=== PATIENT | female | born 1945 | race Caucasian/White ===

== ENCOUNTER → 2016-08-22 | Outpatient (CLI) | payer MEDICARE ==
[~2016-08-22] MED LIST: BIOT1TAB2 PO; CALC500C70 PO; HYDR-5688 PO; IBUP-1428 PO; LABE1TAB28 PO; LEVO25TA5 PO; MULT-506 PO; OXYC-57 PO; TRAZ50TA35 PO; VENL75TA4 PO; ZCR40 PO
--- NOTE | 2016-08-22 16:40 | DIAGNOSTIC IMAGING REPORT ---
LUMBAR SPINE MRI HISTORY: Pain. Radiculopathy. LUMBAR RADICULOPATHY TECHNIQUE: Multiplanar multisequence MRI of the lumbar spine was performed without the use of contrast. COMPARISON: None. FINDINGS: For the purpose of the report the L5-S1 disc space will be located on axial image 23 of 25. Considerable degenerative disc changes throughout. Degenerative change of vertebral endplates throughout. Several synovial cysts posterior to the S2-S3 segment of the sacrum. Posterior disc herniation seen sagittally at L4-L5. L1-L2: Minimal broad-based disc bulge. Left lateral disc herniation compromising the left neural foramina. This may be a loose fragment measuring 8 x 7 mm at maximum. L2-L3: Mild broad-based disc bulge. Mild narrowing of the right and to lesser extent left neuroforamina L3-L4: Moderate degenerative change posterior elements L4-L5: Left central disc herniation creating a focal deformity anterior aspect thecal sac. Minimal narrowing of the neuroforamina bilaterally posterior extension is 9 x 8 mm. L5-S1: Right lateral bulging disc. Moderate narrowing right neural foramina. IMPRESSION: 1. Severe degenerative intervertebral disc change throughout the entire lumbar region. 2. Left central posterior disc herniation L4-L5 creating considerable focal deformity of the thecal sac. 3. Extruded disc fragment occupying the left lateral recess at L1-L2. This compromises the neural foramina by 50-70% 4. Broad-based disc bulge L2-L3 with moderate narrowing of the neuroforamina bilaterally Electronically signed by: Nicolás Sanon M.D. 08/22/2016 4:38 PM Dictated Date/Time: 08/22/2016 4:34 PM
== END | disposition home or self-care (01) ==
LOC: C.MRIBC 15:32
PROVIDERS: ATTEND Anesthesiology
DX: M51.16 Intervertebral disc disorders with radiculopathy, lumbar region (principal)

== ENCOUNTER → 2016-11-21 | Outpatient (CLI) | payer MEDICARE ==
[2016-11-21 12:46] LABS: ALB/GLOB RATIO 1.4 (0.9-2); ALT/SGPT 28 U/L (12-78); AST/SGOT 14 U/L (15-37); BLOOD UREA NITROGEN 17 mg/dl (7-18); BUN/CREATININE RATIO 19.6 (10-20); CARBON DIOXIDE 26 mmol/L (21-32); CHLORIDE 108 mmol/L (98-107); CHOLESTEROL 157 mg/dl (0-200); CHOLESTEROL/HDL RATIO 3.1; CREATININE 0.87 mg/dl (0.60-1.20); GLUCOSE 105 mg/dl (70-99); HDL CHOLESTEROL 50 mg/dl; LDL CHOLESTEROL CALCULATED 82 mg/dl; POTASSIUM 4.1 mmol/L (3.5-5.1); SODIUM 142 mmol/L (136-145); TRIGLYCERIDES 125 mg/dl (0-150); VERY LOW DENSITY LIPOPROT CALC 25 mg/dl
[2016-11-21 12:50] LABS: ESTIMATED AVERAGE GLUCOSE 103 mg/dl; HA1C FLAG Normal (Normal)
[2016-11-21 12:55] LABS: ALKALINE PHOSPHATASE 79 U/L (45-117)
== END | disposition home or self-care (01) ==
LOC: C.LABBFT 10:57
PROVIDERS: ATTEND Internal Medicine
DX: R73.01 Impaired fasting glucose (principal)

== ENCOUNTER → 2017-05-19 | Outpatient (CLI) | payer MEDICARE ==
--- NOTE | 2017-05-19 15:11 | MAMMOGRAPHY REPORT ---
BILATERAL DIGITAL SCREENING MAMMOGRAM WITH CAD: 05/19/2017 CLINICAL HISTORY: Routine screening. Patient has no complaints. TECHNIQUE: Bilateral CC and MLO views were obtained. Current study was also evaluated with a Comput er Aided Detection (CAD) system. COMPARISON: Comparison is made to exam dated: 10/30/2015 mammogram - [facility]. BREAST COMPOSITION: There are scattered areas of fibroglandular density in both breasts. FINDINGS: The parenchymal pattern is unchanged. No developing mass, architectural distortion or clus ter of suspicious microcalcifications is seen in either breast. IMPRESSION: ACR BI-RADS CATEGORY 2: BENIGN There is no mammographic evidence of malignancy. A 1 year screening mammogram is recommended. The pa tient will receive written notification of the results. Approximately 10% of breast cancers are not detected with mammography. A negative mammographic report should not delay biopsy if a clinically suggestive mass is present. Chiqui Rehman M.D. ay/:05/19/2017 15:00:18 Lead Consultant: Marlene Barbosa RT(R)(M), [facility] letter sent: Normal 1/2 BI-RADS Code: ACR BI-RADS Category 2: Benign
== END | disposition home or self-care (01) ==
LOC: C.MAMM 12:30
PROVIDERS: ATTEND Internal Medicine
DX: Z12.31 Encounter for screening mammogram for malignant neoplasm of breast (principal)

== ENCOUNTER 2019-04-22 09:57 | Inpatient (IN) ==
--- NOTE | 2019-03-22 12:52 | PAT Medication Instructions ---
Medication Instructions Date of Service March 22, 2019 Home Medications Medication Instructions Recorded trazodone 50 mg tablet 75 mg PO HS #135 tab 12/27/18 labetalol 200 mg tablet 200 mg PO BID #180 tab 03/16/19 simvastatin 40 mg PO HS venlafaxine 75 mg PO QAM ibuprofen 800 mg tablet 800 mg PO TID PRN trazodone 50 mg tablet 75 mg PO HS calcium carbonate [Tums] 200 mg PO DAILY PRN labetalol 200 mg tablet 200 mg PO BID levothyroxine 25 mcg PO QPM ASK your surgeon for instructions ibuprofen 800 mg tablet 800 mg PO TID PRN DO NOT take the morning of surgery calcium carbonate [Tums] 200 mg PO DAILY PRN Take morning of surgery With a small sip of water, OTHERWISE NOTHING TO EAT OR DRINK AFTER MIDNIGHT: venlafaxine 75 mg PO QAM labetalol 200 mg tablet 200 mg PO BID Take evening before surgery simvastatin 40 mg PO HS trazodone 50 mg tablet 75 mg PO HS calcium carbonate [Tums] 200 mg PO DAILY PRN (if needed) labetalol 200 mg tablet 200 mg PO BID levothyroxine 25 mcg PO QPM Other Notes If you have any questions please call us at [phone] or [phone] or [phone] or [phone]
--- NOTE | 2019-03-23 09:36 | Anesthesiology Consultation ---
Date of Service March 23, 2019 Assessment & Plan (1) Encounter for pre-operative examination: Chart Review Chart Review: Pending: Refer to Additional Notes / Consult section (pending preop testing (labs, EKG, CXR)) and Patient seen in Pre Admission Testing Teaching & Discussion Pre-Anesthesia Teaching/Discussion Notes: Instructed NPO after midnight before surgery,except medications with 15 cc of water. Medication instructions pr ovided according to the PAT guidelines. History Surgery Operation Date: 04/22/19 12:50 Proposed Procedures p Left Total Knee Replacement - Janes Ash MD Height/Weight Height: 4 ft 11 in Weight: 66.3 kg Allergies Allergy/AdvReac Type Severity Reaction Status Date / Time lisinopril Allergy Unknown rash, Verified 03/22/19 12:51 pruritus Penicillins Allergy Unknown swelling Verified 03/22/19 12:51 gabapentin AdvReac Severe shaking Verified 03/16/19 08:52 Medications Home Medications Medication Instructions Recorded Confirmed Last Taken simvastatin 40 mg PO HS 04/07/18 03/16/19 04/27/18 venlafaxine 75 mg PO QAM 04/07/18 03/16/19 04/28/18 05:30 ibuprofen 800 mg tablet 800 mg PO TID PRN #30 tab 12/07/18 03/16/19 Unknown trazodone 50 mg tablet 75 mg PO HS #135 tab 12/27/18 03/16/19 Unknown calcium carbonate [Tums] 200 mg PO DAILY PRN 03/16/19 03/16/19 Unknown labetalol 200 mg tablet 200 mg PO BID #180 tab 03/16/19 Unknown levothyroxine 25 mcg PO QPM 03/16/19 03/16/19 Unknown Past Medical History Medical History Lumbar radiculopathy Insomnia Impaired fasting glucose per records, patient denies Hypothyroidism Hyperlipidemia Arthritis Anxiety Acid reflux occasional (dietary related) Disc degeneration Hot flashes Hypertension Hypothyroidism Kidney stones hx Osteoarthritis Exercise / Class Metabolic Activity II 4-5 Yardwork/Stairs/Walk up hill Past Family History Family History Brother Family history of esophageal cancer Past Surgical History Surgical History History of ureter stent + renal angioplasty Hx of arthroscopic knee surgery RIGHT X2 Hx of arthroscopy of shoulder RIGHT Hx of cholecystectomy Hx of colonoscopy Hx of cone biopsy of cervix Hx of hysterectomy PARTIAL Hx of partial nephrectomy LEFT (2/2 KIDNEY DYSFUNCTION) Hx of total knee arthroplasty RIGHT Past Anesthesia History No Family Hx of Anesthesia Complications and Other "Slow to wake" with multiple surgeries. No known hx of reintubation. History of PONV No Hx of PONV and No Hx of Motion Sickness Social History Smoking Status: Former smoker tobacco type: cigarettes Do You Dip or Chew Tobacco: No Smoking End Date: QUIT 1993 Hx Alcohol Use: Yes Alcohol type: wine alcohol intake frequency: a few times a week Hx Substance Use: No substance use type: does not use Review of Systems Diet controlled reflux. Patient denies chest pain, shortness of breath, dyspnea on exertion, cough, wheezing, palpitations. Physical Exam Vital Signs VITALS BP 124/76 P 51 (on beta amber) TEMP 98.0 SP02 94%RA RESP 16 PHYSICAL Full neck and c-spine range of motion. Full TMJ range of motion. TMD 3 finger breaths Mallampati Score 3 Dentition: missing molar Lungs: clear throughout to auscultation Cardiac: regular rate and rhythm, no murmurs noted Spine: normal Carotid arteries: negative bruit Extremities: no edema
--- NOTE | 2019-03-23 10:11 | XRay Report ---
XR chest Pre-admission PA/Lat HISTORY: Preop. COMPARISON: None. FINDINGS: The lungs are clear. Cardiac silhouette is normal in size. No pleural effusions. No pneumot horax. Prior cholecystectomy. IMPRESSION: No acute process. Electronically signed by: Hermes Garcia M.D. 03/23/2019 10:09 AM
[2019-03-23 11:01] LABS: BUN Creatinine Ratio 31.3 (10-20); Blood Urea Nitrogen 27 mg/dl (7-18); C Reactive Protein < 0.29 mg/dl (0-0.29); Calcium 9.5 mg/dl (8.5-10.1); Carbon Dioxide 29 mmol/L (21-32); Chloride 107 mmol/L (98-107); Creatinine Clr Calc Pharmacy 50.3 ml/min; Est GFR (African American) 79.9; Est GFR (Non-African American) 68.9; Glucose 106 mg/dl (70-99); Potassium 4.4 mmol/L (3.5-5.1); Sodium 141 mmol/L (136-145)
[2019-03-23 11:06] LABS: Partial Thromboplastin Ratio 0.9; Partial Thromboplastin Time 23.3 Seconds (21.0-31.0); Prothrombin Time 10.3 Seconds (9.0-12.0)
[2019-03-23 11:11] LABS: Basophils # (auto) 0.04 K/uL (0-0.2); Basophils % (auto) 0.7 %; Eosinophils # (auto) 0.06 K/uL (0-0.5); Hematocrit (blood only) 38.9 % (37-47); Hemoglobin 13.1 g/dL (12.0-16.0); Immature Granulocytes # (auto) 0.01 K/uL (0.00-0.02); Immature Granulocytes % (auto) 0.2 %; Lymphocytes # (auto) 1.82 K/uL (1.2-3.4); Lymphocytes % (auto) 30.3 %; Mean Corpuscular Hgb Conc 33.7 g/dL (32-36); Mean Corpuscular Volume 89.2 fL (80-100); Mean Platelet Volume 10.6 fL (7.4-10.4); Monocytes # (auto) 0.63 K/uL (0.11-0.59); Monocytes % (auto) 10.5 %; Neutrophils # (auto) 3.45 K/uL (1.4-6.5); Neutrophils % (auto) 57.3 %; Platelet Count 183 K/uL (130-400); RDW Coefficient of Variation 13.4 % (11.5-14.5); RDW Standard Deviation 43.7 fL (36.4-46.3); Red Blood Count 4.36 M/uL (4.2-5.4); White Blood Count 6.01 K/uL (4.8-10.8)
--- NOTE | 2019-04-16 10:11 | History and Physical Report ---
DATE OF ADMISSION: 04/22/2019 CHIEF COMPLAINT: Left knee pain. HISTORY OF PRESENT ILLNESS: The patient is a 73-year-old female referred by my partner Dr. Braden for surgical treatment of her left knee. She had on and off knee pain for quite some time. She did have her right knee replaced by Dr. Hurst in [place] about 9 years ago. She has done pretty well with this. Over the past several years, she has developed increased pain and discomfort in her left knee. It is mostly on the medial side, but some global pain. She has had injections, which gave her a couple weeks of relief and that is about it. It has become less successful over time. She has become more debilitated by her pain. She has a limited walking tolerance. She has difficulty going up and down stairs. She has nighttime pain. She is not interested in further conservative care and wants to have her knee fixed. PAST MEDICAL HISTORY: 1. Hypertension. 2. Angioplasty 20 years ago. 3. Hypothyroidism. 4. Low back pain. 5. Gastroesophageal reflux disease. 6. Obesity with a BMI of 30+. 7. History of kidney failure in the past with fairly normal creatinine currently. PAST SURGICAL HISTORY: Includes: 1. Cholecystectomy. 2. Stent in her kidney. 3. Partial hysterectomy. 4. Cone biopsy. 5. Right knee replacement done in 2009 in [place]. 6. Knee arthroscopy x2. 7. Rotator cuff repair. ALLERGIES: LISINOPRIL, GABAPENTIN, PENICILLIN WHICH CAUSED SOME SWELLING. No breathing problems. CURRENT MEDICINES: Include: 1. Calcium with vitamin D. 2. Ibuprofen 800 mg 3 times a day. 3. Labetalol 200 mg twice a day. 4. Levothyroxine 25 mcg a day. 5. Multivitamin once a day. 6. Simvastatin 40 mg at bedtime. 7. Venlafaxine 75 mg a day. SOCIAL HISTORY: A 73-year-old female. She moved to this area from [place] about 3 years ago. She lives in [place]. Does not smoke. FAMILY HISTORY: Noncontributory. REVIEW OF HISTORY: Negative for diabetes, neurologic problem, vascular problems or bleeding disorders. Denies any chest pain or shortness of breath. No history of DVT or PE. No known bleeding problems. PHYSICAL EXAMINATION: GENERAL: Shows a healthy, pleasant middle-aged female. Looks to be in pretty good health. HEENT: Benign. NECK: Supple, no lymphadenopathy. LUNGS: Clear to auscultation. HEART: Has a regular rate and rhythm. ABDOMEN: Soft, nontender, nondistended. EXTREMITIES: Grossly neurovascularly intact except as follows: Examination of the left lower extremity reveals the patient walks with a slight bit of limp. She has got a slight varus alignment to her knee. Small knee effusion. She is tender over the medial joint line. Range of motion is full, extension to 125 degrees of flexion. There is no instability. No pain with hip motion. X-RAYS: X-ray of the left knee is reviewed. It shows advanced medial compartment arthritis. She has got complete loss of her medial joint space. She has got osteophytes off the medial femoral condyle and medial tibial plateau. The rest of the knee looks pretty good. Right knee replacement looks to be in good position. ASSESSMENT: A 73-year-old white female 9 years out from right knee replacement with advanced left knee medial compartment degenerative joint disease. She has failed conservative treatment. It is affecting her quality of life and she would like to have her left knee fixed. PLAN: We will take her to the operating room and do a left total knee replacement. The risks and benefits of this procedure were explained to the patient including but not limited to DVT, PE, , infection, neurological injury, vascular injury, bleeding problem, pain, limited range of motion, stiffness, failure to relieve her symptoms, incomplete relief of symptoms, need for further surgery in the future, fracture, leg length inequality, nerve palsy, etc. The patient understands and desires to proceed. Informed consent was obtained. We did talk to her about taking her labetalol the morning of surgery. She has stopped her ibuprofen 10 days preop. She is hoping to be discharged to home with [facility].
[~2019-04-22 09:57] MED LIST changes: +ACETAMINOPHEN 500 MG TAB PO SCH; -BIOT1TAB2 PO; +BUPIVACAINE 0.5 % 5 MG/1 ML PF 10ML VIAL ONE; +BUPIVACAINE LIPOSOME/PF 266 MG, BUPIVACAINE/EPINEPHRINE 50 ML, SODIUM CHLORIDE 0.9% 30 ... INFIL SCH; -CALC500C70 PO; +CEFAZOLIN 2000MG 2,000 MG/15 ML SYR IV SCH; +FAMOTIDINE 20 MG TAB PO SCH; +GABAPENTIN 300 MG CAP PO SCH; -HYDR-5688 PO; -IBUP-1428 PO; -LABE1TAB28 PO; -LEVO25TA5 PO; +LR 500ML BOLUS IV SCH; +LR 60ML/HR IV SCH; +METOCLOPRAMIDE HCL 10 MG TABLET PO SCH; -MULT-506 PO; -OXYC-57 PO; +ROPIVACAINE 0.5% 5 MG/ML 30 ML VIAL ONE; -TRAZ50TA35 PO; -VENL75TA4 PO; -ZCR40 PO
--- NOTE | 2019-04-22 10:48 | History & Physical Bridge Note ---
Date of Service April 22, 2019 History & Physical Bridge Note I have examined the patient, reviewed the History & Physical and in the interval since the performance of the History & Physical I have noted the following changes of clinical significance: no changes noted
[2019-04-22] MEDS ORDERED: TRANEXAMIC ACID 1,000 MG **IV Intra-op IV SCH (11:30)
[2019-04-22] MEDS ORDERED: ATROPINE SULFATE 0.1 MG/ML 10ML SYR IV PRN (12:03)
[2019-04-22] MEDS ORDERED: ePHEDrine sulfate 50 MG/ML AMP IV PRN (12:03)
[2019-04-22] MEDS ORDERED: MIDAZOLAM HCL 1 MG/ML 2ML VIAL ONE ×2 (12:30→13:20)
[2019-04-22] MEDS ORDERED: fentaNYL citrate 100 MCG/2 ML VIAL ONE (12:30)
[2019-04-22] MEDS ORDERED: BACITRACIN INJ 50,000 UNIT VIAL ONE (12:44)
[2019-04-22] MEDS ORDERED: SODIUM CHLORIDE 0.9% PF 50 ML VIAL ONE (12:44)
[2019-04-22] MEDS ORDERED: BUPIVACAINE 0.25% 30 ML VIAL ONE (12:44)
[2019-04-22] MEDS ORDERED: EPINEPHrine INJ 1 MG/ML AMP ONE (12:44)
[2019-04-22] MEDS ORDERED: BUPIVACAINE LIPOSOME 1.3% 266 MG/20 ML VIAL ONE (12:44)
[2019-04-22] MEDS ORDERED: PROPOFOL IV EMULSION 10 MG/ML 20 ML VIAL IV ONE (13:26)
[2019-04-22] MEDS ORDERED: KETAMINE HCL INJ 50 MG/ML 10 ML VIAL ONE (13:46)
--- NOTE | 2019-04-22 14:44 | Post Operative Brief Note ---
PG Immediate Post Op with CF Date of Surgery April 22, 2019 Pre & Post Diagnosis Operation Date: 04/22/19 12:30 Pre-Op Diagnosis: Left Knee Advanced Degenerative Joint Disease Post-Op Diagnosis: Left Knee Advanced Degenerative Joint Disease I identified the patient and participated in the time-out.: Yes Procedure Operation Date: 04/22/19 12:30 Actual Procedures p Left Total Knee Arthroplasty, Cemented(Left) - Janes Ash MD Surgeon Janes Ash MD Lacquer Shader Chris, PAC Estimated Blood Loss 50 Findings Consistent with Post-Op Diagnosis Fluids 1400 cc Specimens Specimen Description: A. Left Knee Bone and Tissue Drains Augustin Catheter (A 16 Czech augustin catheter was inserted by JOSIE Berry, without difficulty, clear yellow urine obtained, output to be monitored by Anesthesia.) Anesthesia Type Spinal MAC Complications none Disposition Accompanied Patient To Recovery: No Disposition: Recovery Room
--- NOTE | 2019-04-22 15:11 | XRay Report ---
XR knee LT 2V routine CLINICAL HISTORY: Postoperative evaluation. COMPARISON: Left knee radiographs February 17, 2019. FINDINGS: Alignment of the total left knee arthroplasty is anatomic. There is no fracture or unexpec hernan radiopaque foreign body. There are skin patricia. IMPRESSION: Expected findings following total left knee arthroplasty. Electronically signed by: Don Hankins M.D. 04/22/2019 3:10 PM
[2019-04-22] MEDS ORDERED: ALUMINUM/MAGNESIUM SUSP 30 ML UDC PO PRN (17:01)
[2019-04-22] MEDS ORDERED: ONDANSETRON INJ 2 MG/ML 2 ML VIAL IV PRN (17:01)
[2019-04-22] MEDS ORDERED: HYDROmorphone INJ 0.5 MG/0.5 ML SYR IV PRN (17:01)
[2019-04-22] MEDS ORDERED: bisacodyL 10 MG SUPP PR PRN (17:01)
[2019-04-22] MEDS ORDERED: MAGNESIUM HYDROXIDE SUSP 30 ML UDC PO PRN (17:01)
[2019-04-22] MEDS ORDERED: CALCIUM CARBONATE 500 MG CHEWABLE TAB PO PRN (17:01)
[2019-04-22] MEDS ORDERED: SODIUM CHLORIDE 0.9% 1000ML 1,000 ML IV SCH (17:01)
[2019-04-22] MEDS ORDERED: METOCLOPRAMIDE HCL INJ 5 MG/ML 2 ML VIAL IV PRN (17:01)
[2019-04-22] MEDS ORDERED: NALOXONE HCL 0.4 MG/1 ML VIAL/CARP IV PRN (17:01)
--- NOTE | 2019-04-22 17:37 | Operative Report ---
Post Operative Report Pre & Post Diagnosis Operation Date: 04/22/19 12:30 Pre-Op Diagnosis: Left Knee Advanced Degenerative Joint Disease Post-Op Diagnosis: Left Knee Advanced Degenerative Joint Disease I identified the patient and participated in the time-out.: Yes Procedure Operation Date: 04/22/19 12:30 Actual Procedures p Left Total Knee Arthroplasty, Cemented(Left) - Janes Ash MD Surgeon Janes Ash MD Network Associate Chris, PAC Estimated Blood Loss 50 Findings Consistent with Post-Op Diagnosis Operative findings revealed advanced grade 4 [id number] disease in the medial compartment. She had a fixed varus deformity to her knee with a moderate sized knee effusion. She had osteophytes off the medial femoral condyle medial tibial plateau. She had grade 4 changes in patellofemoral joint. The lateral compartment was fairly well-preserved. Fluids 1400 cc Specimens Left knee sent for pathology Drains None Anesthesia Type Spinal MAC Complications none Disposition Accompanied Patient To Recovery: No Disposition: Recovery Room Indications 73-year-old female with a long history of knee problems. She underwent a right knee replacement done in [place] several years ago. She moved to this area recently patient been treated extensively for left knee arthritis. She continued to be more debilitated by her disease is times gone on. X-rays revealed advanced medial compartment DJD. She like to proceed with total knee arthroplasty Description of Procedure Operative implants consisted of: 1. Biomet Vanguard size 62.5 left posterior stabilized femoral component. 2. Biomet Vanguard size 63 tibial tray. 3. 10 mm posterior stabilized polyethylene insert. 4. 28 x 8 all poly-patella Patient was taken to the operating room identified and placed on the operating table in supine position. Contact areas were appropriately padded. IV antibiotics were prescribed by anesthesia team. And abductor canal block and a spinal anesthetic had been implemented in the holding area. Rios catheter was placed in sterile fashion. A left thigh tourniquet was then placed in the left lower extremities and prepped and draped in usual sterile fashion. Depressed the left leg was elevated exsanguinated use of an Esmarch interspace at 300 mmHg. An anterior approach left knee was then performed the longitudinal incision centered over the patella. Sharp dissection was Through subtenons tissue down to level the extensor mechanism. A medial parapatellar arthrotomy incision was made. Some subperiosteal dissection was carried out medially. The fat pad was dissected from beneath the patella tendon. The lateral patellofemoral ligament was released. The patella was everted. The knee was flexed. The osteophytes were taken off the distal femur. The ACL PCL was released from the distal femur and the tibia subluxated anteriorly. The external tibial alignment jig was then placed in the interface of the tibia and adjusted 14 mm medially. Proximal tibial cut was made to remove about a millimeter bone from the most efficient aspect medial tibial plateau. Some osteophytes were taken off medial and posterior medially. The tibia was then sized to a size 63. Attention was then drawn to the femur. The distal femur was entered with a sharp drill. Intramedullary canal was suction. A left 5 degree valgus cutting guide was placed but this femoral cutting block was pinned in place per distal femoral cut was made to take an additional 3 mm of bone off the distal femur. The femur was then sized to a size 62.5. We did down size this slightly. The AP cutting block was pinned parallel to the epicondylar axis which was 4 degrees of external rotation. Anterior cut, anterior chamfer, posterior cut, posterior chamfer cuts were made. The box cutting guide was placed and adjusted slightly lateral and the box cut was made. The knee was flexed. The remnants of the medial and lateral menisci were excised with the osteophytes were taken off the posterior aspect of the femur. A trial femoral component was placed but the tibial tray was pinned in maximum external rotation and the drill and stem punch were used to create defect in the proximal tip for the tibial tray. The knee was then trialed the 10 mm insert fit most appropriately. Attention down the patella. The patella was cleaned of all soft tissues. Patella thickness measured 19 mm in thickness was cut down 13 but was sized to a size 28 patella. Lug holes were drilled for the 28 patella. The lateral osteophyte was moved to the patella button was placed. New was taken through range of motion and the patella tracked nicely with no thumbs test. Attention turned to placing permanent components. All trial implants were removed. A bone plug was placed in the distal femur to limit blood loss. A double batch of Palacos G cement was mixed. A Biomet Vanguard size 62.5 left posterior bifemoral component, size 63 tibial tray, 10 mm posterior stabilized polyethylene insert, and a 28 x 8 all poly-. Patella within cement in place. The knee was brought out into full extension until the cement hardened. A final cement check was then performed. The pericapsular tissues were injected with a total of 100 cc of combination twice of Exparel, 30 cc of normal saline, 50 cc of quarter percent Marcaine with epinephrine. The patient did receive 1 g of tranexamic acid per the tourniquet was then let down for tourniquet time 55 minutes. Hemostasis assured with electrocautery. The wound was then irrigated with extensive amounts of pulsatile lavage solution. The extensor mechanism then closed with a combination of 1 PDS suture and #1 Vicryl suture in [id number] fashion for extensor mechanism was checked and found to be intact the subtenons tissue then closed with 2 Dexon suture in a buried knot fashion skin was closed skin patricia. Leg was then cleaned dried and sterile dressing with Xeroform 4 4 sterile cast padding Nate bandage were applied. Patient was then transferred to the recovery room in stable condition. Patient tolerated procedure well no complications. I attest to the content of the Intraoperative Record and any orders documented therein. Any exceptions are noted below.
[2019-04-22] MEDS: ASCORBIC ACID 500 MG TAB PO SCH (19:14)
[2019-04-22] MEDS: FERROUS GLUCONATE 324 MG TAB PO SCH (19:14)
[2019-04-22] MEDS: KETOROLAC TROMETHAMINE 15 MG/ML VIAL IV SCH ×2 (19:14→22:59)
[2019-04-22] MEDS: TRAMADOL HCL 50 MG TABLET PO PRN (19:14)
[2019-04-22] MEDS: TRAZODONE HCL 50 MG TAB PO SCH (20:18)
[2019-04-22] MEDS: SIMVASTATIN 40 MG TAB PO SCH (20:18)
[2019-04-22] MEDS: DOCUSATE SODIUM 100 MG CAP PO SCH (20:18)
[2019-04-22] MEDS: CEFAZOLIN 1000MG 1,000 MG/7.5 ML SYR IV SCH (20:18)
[2019-04-22] MEDS: SENNA 8.6 MG TAB PO SCH (20:18)
[2019-04-22] MEDS: ASPIRIN 81 MG ECTAB PO SCH (20:18)
[2019-04-22] MEDS: LABETALOL HCL 200 MG TAB PO SCH (20:20)
[2019-04-22] MEDS ORDERED: TRANEXAMIC ACID 1,000 MG in 0.9 % SODIUM CHLORIDE 100 ML IV SCH (20:45)
[2019-04-22] MEDS: ACETAMINOPHEN 500 MG TAB PO SCH (21:11)
[2019-04-23] MEDS ORDERED: Nursing to Pharmacy Communication ONE (00:01)
[2019-04-23] MEDS: KETOROLAC TROMETHAMINE 15 MG/ML VIAL IV SCH ×4 (05:03→23:06)
[2019-04-23] MEDS: ACETAMINOPHEN 500 MG TAB PO SCH ×3 (05:03→21:14)
[2019-04-23] MEDS: CEFAZOLIN 1000MG 1,000 MG/7.5 ML SYR IV SCH (05:03)
[2019-04-23] MEDS: LEVOTHYROXINE SODIUM 25 MCG TABLET PO SCH (05:04)
[2019-04-23] MEDS: TRAMADOL HCL 50 MG TABLET PO PRN ×2 (05:13→11:17)
[2019-04-23 05:50] LABS: Hematocrit (blood only) 35.5 % (37-47); Mean Corpuscular Hemoglobin 29.8 pg (25-34); Mean Corpuscular Hgb Conc 33.8 g/dL (32-36); Mean Corpuscular Volume 88.1 fL (80-100); Platelet Count 156 K/uL (130-400); RDW Coefficient of Variation 13.3 % (11.5-14.5); RDW Standard Deviation 42.7 fL (36.4-46.3); Red Blood Count 4.03 M/uL (4.2-5.4)
[2019-04-23 06:17] LABS: BUN Creatinine Ratio 18.6 (10-20); Calcium 8.6 mg/dl (8.5-10.1); Creatinine Clr Calc Pharmacy 47.8 ml/min; Est GFR (African American) 74.6; Est GFR (Non-African American) 64.3; Potassium 4.4 mmol/L (3.5-5.1)
[2019-04-23] MEDS: MULTIVITAMIN TAB PO SCH (07:35)
[2019-04-23] MEDS: LABETALOL HCL 200 MG TAB PO SCH ×2 (07:35→21:13)
[2019-04-23] MEDS: ASCORBIC ACID 500 MG TAB PO SCH ×2 (07:35→17:36)
[2019-04-23] MEDS: ASPIRIN 81 MG ECTAB PO SCH ×2 (07:35→21:13)
[2019-04-23] MEDS: VENLAFAXINE HCL 37.5 MG TAB PO SCH (07:36)
[2019-04-23] MEDS: FERROUS GLUCONATE 324 MG TAB PO SCH ×2 (07:36→17:36)
[2019-04-23] MEDS: DOCUSATE SODIUM 100 MG CAP PO SCH ×2 (07:36→21:13)
--- NOTE | 2019-04-23 09:52 | Progress Note ---
DATE: 04/23/2019 SUBJECTIVE: A 73-year-old white female postop day #1 from left knee replacement. She is doing pretty well. She is having some pain, but took some pain medicine, it is improved. Denies any chest pain or shortness of breath. Not feeling dizzy or lightheaded. OBJECTIVE: VITAL SIGNS: Temperature 36.6. Vital signs stable. GENERAL: Shows a pleasant, middle-aged female. She is sitting up in bed, looks pretty comfortable this morning. LUNGS: Clear to auscultation. HEART: Has a regular rate and rhythm. ABDOMEN: Soft, nontender, nondistended. EXTREMITIES: Grossly neurovascularly intact except as follows. Examination of the left leg reveals the dressing to be clean, dry and intact. Her leg is well aligned. She can dorsiflex and plantarflex her foot appropriately. She is neurologically intact. LABORATORY DATA: Hemoglobin 12.0. Hematocrit 35.5. Electrolytes are stable. ASSESSMENT: A 73-year-old white female postop day #1 from left knee replacement, doing pretty well. Some pain, but not out of the ordinary. She is responding to the pain medicines. She is neurologically intact. PLAN: 1. DVT prophylaxis including thigh-high TEDs, SCDs, and aspirin twice a day. 2. PT/OT. Weight bear as tolerated. Left total knee protocol. 3. Pain control, doing well with current pain regimen. 4. Disposition: She is planning to be discharged home with some home health once adequately recovered and medically stable and her pain is controlled.
[2019-04-23] MEDS: SIMVASTATIN 40 MG TAB PO SCH (21:13)
[2019-04-23] MEDS: TRAZODONE HCL 50 MG TAB PO SCH (21:13)
[2019-04-23] MEDS: SENNA 8.6 MG TAB PO SCH (21:53)
[2019-04-24] MEDS: TRAMADOL HCL 50 MG TABLET PO PRN ×2 (02:47→09:01)
[2019-04-24] MEDS: ACETAMINOPHEN 500 MG TAB PO SCH (05:56)
[2019-04-24] MEDS: LEVOTHYROXINE SODIUM 25 MCG TABLET PO SCH (05:56)
[2019-04-24] MEDS: KETOROLAC TROMETHAMINE 15 MG/ML VIAL IV SCH (05:56)
[2019-04-24] MEDS: MULTIVITAMIN TAB PO SCH (07:49)
[2019-04-24] MEDS: VENLAFAXINE HCL 37.5 MG TAB PO SCH (07:49)
[2019-04-24] MEDS: ASPIRIN 81 MG ECTAB PO SCH (07:50)
[2019-04-24] MEDS: LABETALOL HCL 200 MG TAB PO SCH (07:50)
[2019-04-24] MEDS: ASCORBIC ACID 500 MG TAB PO SCH (07:50)
[2019-04-24] MEDS: DOCUSATE SODIUM 100 MG CAP PO SCH (07:50)
[2019-04-24] MEDS: FERROUS GLUCONATE 324 MG TAB PO SCH (07:51)
--- NOTE | 2019-04-24 09:01 | Progress Note ---
DATE: 04/24/2019 SUBJECTIVE: A 73-year-old white female postop day #2 from a left knee replacement. She is doing pretty well. Had a bit of pain in the middle of the night, took some medicine, doing much better this morning. No chest pain or shortness of breath. Not feeling dizzy or lightheaded. OBJECTIVE: VITAL SIGNS: Temperature 36.7. Vital signs stable. GENERAL: This is a pleasant elderly female. She is sitting up in bed, looks pretty comfortable this morning. EXTREMITIES: Examination of the left leg reveals some fairly mild swelling. A little bit of bruising over the medial side of her knee. Incision lines are clean, dry and intact. No significant drainage. Calf is soft and supple. She is neurologically intact. ASSESSMENT: A 73-year-old white female postop day #2 from left knee replacement, doing pretty well. Pain is controlled. She is neurologically intact. PLAN: 1. DVT prophylaxis including thigh-high TEDs, SCDs, and aspirin twice a day. 2. PT/OT. Weight bear as tolerated. Left total knee protocol. 3. Pain control, doing pretty well with current pain regimen. 4. Disposition: Plan to discharge to home with some home health later today.
--- NOTE | 2019-04-27 11:57 | Discharge Summary ---
ADMITTING PHYSICIAN AND SURGEON: Janes Ash MD ADMITTING DIAGNOSIS: Left knee degenerative joint disease. SURGERY PERFORMED: Left total knee arthroplasty. SECONDARY DIAGNOSES: Hypertension, angioplasty, hypothyroidism, low back pain, gastroesophageal reflux disease, obesity, history of kidney failure. HISTORY AND PHYSICAL EXAMINATION: Well documented in the patient's chart. HOSPITAL COURSE: The patient was admitted on 04/22/2019, underwent total knee arthroplasty, tolerated the procedure well. There were no complications. She was transferred to the PACU postoperatively and later to the orthopedic floor for further care. She was given Ancef for antibiotic prophylaxis, JOSE CARLOS stockings, SCDs, and aspirin for DVT prophylaxis. Hemoglobin, hematocrit, and vital signs were monitored during her hospital stay and remained stable. She did not require any blood transfusions. There were no complications. By postoperative day 2, she was tolerating a regular diet. Pain was controlled with oral pain medicine. She was participating in physical therapy. On postop day 2, she was discharged home, set up with home health services. She was given printed discharge instructions as well as new prescriptions for Extra Strength Tylenol, aspirin, and tramadol. Continue her home medicines. Continue physical therapy, weightbearing as tolerated, JOSE CARLOS stockings. Follow up in approximately 2 weeks postop or sooner if there are any problems or concerns.
--- NOTE | 2019-04-27 12:50 | Anesthesiology Progress Note ---
Date of Service April 27, 2019 Anesthesia Post Procedure Pain Intensity Left Knee: Pain Intensity: 6 Transfer of Care Handoff Completed per policy Notes Mental Status: participated in evaluation Anesthetic Complications: no major complications apparent Notes: Review of record at this time indicates pt was discharged without anesthesia related complaints or complications
== END 2019-04-24 10:46 | disposition home health service (06) | DRG 470 ==
LOC: ASU 09:57 → 3E 14:48

== ENCOUNTER 2025-05-12 11:04 | Observation (INO) ==
--- NOTE | 2025-04-06 12:42 | PAT Medication Instructions ---
Medication Instructions Date of Service April 06, 2025 Home Medications Medication Instructions Recorded peg 3350-electrolytes 236 240 ml PO ONCE #4,000 mL 03/18/24 gram-22.74 gram-6.74 gram-5.86 gram solution (Golytely) trazodone 50 mg tablet 100 mg (2 x 50 mg) PO HS #180 tabs 06/17/24 venlafaxine 75 mg capsule,extended 75 mg PO QAM #90 caps 09/14/24 release 24 hr levothyroxine 25 mcg tablet 25 mcg PO QAM #90 tabs 03/14/25 simvastatin 40 mg tablet 40 mg PO HS #90 tabs 03/14/25 labetalol 200 mg tablet 200 - 400 mg (1 - 2 x 200 mg) PO 04/04/25 UD #270 tabs biotin 1 mg capsule 1 mg PO QAM calcium 333 mg-vit D3 200 unit-magnesium 133 mg-zinc 5 mg tablet 1 tab PO QAM anastrozole 1 mg tablet 1 mg PO QAM peg 3350-electrolytes 236 gram-22.74 gram-6.74 gram-5.86 gram solution (Golytely) 240 ml PO ONCE trazodone 50 mg tablet 100 mg (2 x 50 mg) PO HS venlafaxine 75 mg capsule,extended release 24 hr 75 mg PO QAM levothyroxine 25 mcg tablet 25 mcg PO QAM simvastatin 40 mg tablet 40 mg PO HS labetalol 200 mg tablet 200 - 400 mg (1 - 2 x 200 mg) PO UD biotin 10,000 mcg chewable tablet (Hair, Skin and Nails (biotin)) 10,000 mcg PO QAM diphenhydramine 25 mg-acetaminophen 500 mg tablet (Tylenol PM Extra Strength) 1 tab PO HS Continue as directed peg 3350-electrolytes 236 gram-22.74 gram-6.74 gram-5.86 gram solution (Golytely) 240 ml PO ONCE (if needed) ASK your prescriber and surgeon anastrozole 1 mg tablet 1 mg PO QAM STOP taking 2 weeks before surgery biotin 1 mg capsule 1 mg PO QAM biotin 10,000 mcg chewable tablet (Hair, Skin and Nails (biotin)) 10,000 mcg PO QAM DO NOT take the morning of surgery calcium 333 mg-vit D3 200 unit-magnesium 133 mg-zinc 5 mg tablet 1 tab PO QAM Take morning of surgery With a small sip of water, OTHERWISE NOTHING TO EAT OR DRINK AFTER MIDNIGHT: venlafaxine 75 mg capsule,extended release 24 hr 75 mg PO QAM levothyroxine 25 mcg tablet 25 mcg PO QAM labetalol 200 mg tablet 200 - 400 mg (1 - 2 x 200 mg) PO UD Take evening before surgery trazodone 50 mg tablet 100 mg (2 x 50 mg) PO HS simvastatin 40 mg tablet 40 mg PO HS labetalol 200 mg tablet 200 - 400 mg (1 - 2 x 200 mg) PO UD diphenhydramine 25 mg-acetaminophen 500 mg tablet (Tylenol PM Extra Strength) 1 tab PO HS Other Notes If you have any questions please call us at [phone] or [phone] or [phone] or [phone]
--- NOTE | 2025-04-13 10:48 | Anesthesiology Consultation ---
Date of Service April 13, 2025 Assessment & Plan (1) Encounter for pre-operative examination: Chart Review Chart Review: Acceptable Risk for Surgery (pending review of vascular surgery records and routine PCP appt ) and Patient seen in Pre Admission Testing - Please obtain most recent vascular note (Dr Fair) and any renal artery imaging if available (such as renal artery u/s, abdominal/pelvis CTA) - Awaiting routine PCP appt 04/24/25 ([place]) Left limb restriction - Per discussion with Dr Mccord - patient is NOT an ideal OPJ due to age and PMH- patient made aware. Surgeon's office and OR were updated as well to change to 23 hour obs Per PAT appt on 04/13/25, no recent illness/disease exposures, illness related symptoms, or recent illness/disease positive tests. Will leave to surgeon's discretion if preop Covid testing needed Left shoulder scope 05/12/24= Done under [facility] with LMA #4. Attempt x 1, atraumatic History Surgery Operation Date: 05/12/25 11:00 Proposed Procedures p OP: Left Total Shoulder Arthroplasty Reverse - Darryl Knenedy, DO Height/Weight Height: 5 ft 1 in Weight: 63.4 kg Allergies Allergy/AdvReac Type Severity Reaction Status Date / Time Penicillins Allergy Intermediate swelling Verified 04/06/25 12:07 lisinopril Allergy Mild rash, Verified 04/06/25 12:07 pruritus gabapentin AdvReac Severe shaking Verified 04/06/25 12:07 Medications Home Medications Medication Instructions Recorded Confirmed Last Taken biotin 1 mg capsule 1 mg PO QAM 05/16/20 04/06/25 03/24/24 calcium 333 mg-vit D3 200 1 tab PO QAM 07/30/20 04/06/25 03/24/24 unit-magnesium 133 mg-zinc 5 mg tablet anastrozole 1 mg tablet 1 mg PO QAM 12/12/20 04/06/25 05/12/24 06:00 trazodone 50 mg tablet 100 mg (2 x 50 mg) PO HS #180 tabs 06/17/24 04/06/25 Unknown venlafaxine 75 mg capsule,extended 75 mg PO QAM #90 caps 09/14/24 04/06/25 Unknown release 24 hr levothyroxine 25 mcg tablet 25 mcg PO QAM #90 tabs 03/14/25 04/06/25 Unknown simvastatin 40 mg tablet 40 mg PO HS #90 tabs 03/14/25 04/06/25 Unknown labetalol 200 mg tablet 200 - 400 mg (1 - 2 x 200 mg) PO 04/04/25 04/06/25 Unknown UD #270 tabs biotin 10,000 mcg chewable tablet 10,000 mcg PO QAM 04/06/25 04/06/25 Unknown (Hair, Skin and Nails (biotin)) diphenhydramine 25 1 tab PO HS 04/06/25 04/06/25 Unknown mg-acetaminophen 500 mg tablet (Tylenol PM Extra Strength) Past Medical History Medical History Acid reflux occasional (dietary related) stable and controlled Anxiety Disc degeneration Hiatal hernia Hx of renal calculi no recent issues HX: breast cancer 08/2023, sx; left limb restriction no chemo or XRT Hyperlipidemia Hypertension Hypothyroidism Insomnia Lumbar facet arthropathy Lumbar radiculopathy Osteoarthritis PAD (peripheral artery disease) s/p angioplasty to renal artery 1991- follows with Dr Fair Spinal meningioma - "intradural lesions in spine at T9-10" - dx'ed in 2021, LP negative for malignant cells, imaging showed stable size - last seen by neurosurgery (12/01/23)- recommended conservative management; no surgical intervention needed; follow up with neurosurgery PRN Exercise / Class Metabolic Activity II 4-5 Yardwork/Stairs/Walk up hill (one flight of stairs - no chest pain or SOB ) Past Family History Family History Brother Family history of esophageal cancer Alcohol abuse Heart disease Cancer Mother Alcohol abuse Heart disease Myocardial infarction Hypertension Sister Heart disease Breast cancer Cancer Hypertension Father Lung disease Cancer Prostate cancer Other Lung cancer No family history of adverse response to anesthesia Denies family history of Ovarian cancer Colorectal cancer Past Surgical History Surgical History History of dilatation and curettage x2 History of esophagogastroduodenoscopy (EGD) History of left knee replacement History of lumpectomy of left breast History of ureter stent + renal angioplasty (1991) Hx of arthroscopic knee surgery right X2 Hx of arthroscopy of shoulder right/left Hx of bilateral cataract extraction Hx of cholecystectomy Hx of colonoscopy Hx of cone biopsy of cervix Hx of hysterectomy partial Hx of LASIK Hx of partial nephrectomy "years ago", left (2/2 KIDNEY DYSFUNCTION) Status post right knee replacement Past Anesthesia History No Hx of Anesthesia Complications and No Family Hx of Anesthesia Complications History of PONV No Hx of PONV and No Hx of Motion Sickness Social History Smoking Status: Former smoker tobacco type: cigarettes Do You Dip or Chew Tobacco: No Smoking End Date: 40 years ago Hx Alcohol Use: Yes (none for last 6-8 weeks) Alcohol type: wine alcohol intake frequency: 0-2 drinks per day Hx Substance Use: No substance use type: does not use Review of Systems Patient denies chest pain, shortness of breath, dyspnea on exertion, cough, wheezing, palpitations. No hx of seizures, stroke, WA, apnea/snoring. No hx of blood clots or blood transfusions Physical Exam Vital Signs VITALS BP 114/72 P 56 TEMP 97.8 SP02 96% RESP 16 Constitutional no acute distress ENMT Mouth: no TMJ clicking Thyromental Distance: > or= 3.5 Finger Breadths (3.5) Mallampati Class: III Neck neck extension not limited Respiratory normal respiratory effort; no respiratory distress Auscultation: lungs clear to auscultation bilaterally; no wheezes Cardiovascular Rate/Rhythm: regular rate and regular rhythm Heart Sounds: no murmur Vessels: no carotid bruit Musculoskeletal Spine: no pain with cervical ROM Extremities: extremities normal to inspection Psychiatric Orientation: alert Lab Results Anesthesia Preop Results Results Anesthesia Widget: WBC 5.26 K/ul (4.8-10.8) 04/13/25 Hgb 12.4 g/dl (12.0-16.0) 04/13/25 Hct 37.0 % (37.0-47.0) 04/13/25 Plt 219 K/uL (130-400) 04/13/25 Na 138 mmol/L (136-145) 04/13/25 K 4.2 mmol/L (3.5-5.1) 04/13/25 Cl 104 mmol/L (98-107) 04/13/25 CO2 26 mmol/L (21-32) 04/13/25 BUN 19 mg/dl (6-23) 04/13/25 Creat 0.70 mg/dl (0.6-1.2) 04/13/25 Glucose Level 98 mg/dl (70-99(Fasting)) 04/13/25 PT 10.9 Seconds (9.0-12.0) 04/13/25 PTT 24 Seconds (21-31) 04/13/25 INR 1.0 (0.9-1.1) 04/13/25 TSH 4.588 uIu/ml (0.300-4.500) H 04/10/25 Free T4 0.95 ng/dl (0.61-1.60) 04/10/25 Blood Type A Positive 04/13/25 Antibody Screen NEGATIVE 04/13/25 Testing Electrocardiogram Date: 04/13/25 Findings: + SB @ (54bpm) Low voltage QRS Poor R wave progression, consider anterior WA vs lead placement vs LVH When compared to EKG from May 04, 2024- borderline criteria for inferior infarct are no longer present, nonspecific T wave abnormality improved in lateral leads per cardio Chest X-Ray Date: 04/13/25 Findings: + NAD Other Testing Chest CT 01/31/25= There is no evidence of intrathoracic metastatic disease on this unenhanced examination. Mild cardiomegaly noting coronary artery atherosclerosis. There is no airspace consolidation or pleural effusion. Thoracic MRI 09/24/23= No significant in the 2 adjacent intradural extra medullary lesions within the thoracic spinal canal at the T9-T10 level. (Addendum- The spinal lesions favor meningiomas and not hemangiomas.) Continued follow-up recommended to exclude the possibility of metastatic disease. Heterogeneous marrow signal with scattered T1 and T2 hypointense nodular foci again noted within the thoracic spine. This remains unchanged and favors a benign process.
--- NOTE | 2025-05-11 07:45 | History & Physical Report ---
Date of Service May 11, 2025 Assessment & Plan (1) Rotator cuff arthropathy of left shoulder: We will proceed with a left reverse shoulder arthroplasty. Postoperatively, she will be placed in a sling and will be kept overnight in the hospital for postop medical management. She plans to use [facility] with [facility] physical therapy after discharge. History of Present Illness Chief Complaint: Cuff tear arthropathy left shoulder. Primary Care Provider: Sejal MccordDO Carreno is a pleasant 25-year-old female who I did a left rotator cuff repair in May 2024. During that time, she had advanced arthritis more than I was expecting. She also had a larger cuff tear than I was expecting. Her symptoms have waxed and waned postoperatively. For a while, she will do pretty well and then her symptoms will return. Her shoulder is becoming more and more bothersome. It is starting to affect her daily activities. She has trouble doing things away from her body or up overhead. She is having trouble sleeping at night. The weakness is becoming more profound. After failed conservative treatment, she has elected proceed with a left reverse shoulder arthroplasty. Allergies Allergy/AdvReac Type Severity Reaction Status Date / Time Penicillins Allergy Intermediate swelling Verified 05/03/25 10:13 lisinopril Allergy Mild rash, Verified 05/03/25 10:13 pruritus gabapentin AdvReac Severe shaking Verified 05/03/25 10:13 Home Medications Medication Instructions Recorded Confirmed Type biotin 1 mg capsule 1 mg PO QAM 05/16/20 05/03/25 History calcium 333 mg-vit D3 200 1 tab PO QAM 07/30/20 05/03/25 History unit-magnesium 133 mg-zinc 5 mg tablet anastrozole 1 mg tablet 1 mg PO QAM 12/12/20 05/03/25 History trazodone 50 mg tablet 100 mg (2 x 50 mg) PO HS #180 tabs 06/17/24 05/03/25 Rx venlafaxine 75 mg capsule,extended 75 mg PO QAM #90 caps 09/14/24 05/03/25 Rx release 24 hr levothyroxine 25 mcg tablet 25 mcg PO QAM #90 tabs 03/14/25 05/03/25 Rx simvastatin 40 mg tablet 40 mg PO HS #90 tabs 03/14/25 05/03/25 Rx labetalol 200 mg tablet 200 - 400 mg (1 - 2 x 200 mg) PO 04/04/25 05/03/25 Rx UD #270 tabs biotin 10,000 mcg chewable tablet 10,000 mcg PO QAM 04/06/25 05/03/25 History (Hair, Skin and Nails (biotin)) diphenhydramine 25 1 tab PO HS 04/06/25 05/03/25 History mg-acetaminophen 500 mg tablet (Tylenol PM Extra Strength) trazodone 150 mg tablet 150 mg PO .qhs #90 tabs 05/03/25 05/03/25 Rx Past Med/Surg History Problem List Osteopenia Encounter for pre-operative examination Rotator cuff arthropathy of left shoulder Status post rotator cuff repair (~05/2024) GERD (gastroesophageal reflux disease) History of colon polyps Hiatal hernia Rotator cuff tear Disc degeneration, lumbar History of breast cancer Vitamin D deficiency Meningioma, spinal Insomnia Hypothyroidism Hyperlipidemia Arthritis Anxiety Kidney stones hx Hypertension Medical History PAD (peripheral artery disease) s/p angioplasty to renal artery 1991 Spinal meningioma - "intradural lesions in spine at T9-10" - dx'ed in 2021, LP negative for malignant cells, imaging showed stable size - last seen by neurosurgery (12/01/23)- recommended conservative management; no surgical intervention needed; follow up with neurosurgery PRN Lumbar facet arthropathy Hx of renal calculi no recent issues Insomnia Hypothyroidism Hypertension Hyperlipidemia Hiatal hernia Anxiety HX: breast cancer 08/2023, sx; left limb restriction no chemo or XRT Osteoarthritis Lumbar radiculopathy Disc degeneration Acid reflux occasional (dietary related) stable and controlled Surgical History Hx of bilateral cataract extraction History of esophagogastroduodenoscopy (EGD) History of lumpectomy of left breast Hx of LASIK History of dilatation and curettage x2 Status post right knee replacement History of left knee replacement Hx of arthroscopic knee surgery right X2 Hx of colonoscopy Hx of arthroscopy of shoulder right/left Hx of cone biopsy of cervix Hx of hysterectomy partial History of ureter stent + renal angioplasty (1991) Hx of cholecystectomy Hx of partial nephrectomy "years ago", left (2/2 KIDNEY DYSFUNCTION) Family History Brother Family history of esophageal cancer Alcohol abuse Heart disease Cancer Mother Alcohol abuse Heart disease Myocardial infarction Hypertension Sister Heart disease Breast cancer Cancer Hypertension Father Lung disease Cancer Prostate cancer Other Lung cancer No family history of adverse response to anesthesia Denies family history of Ovarian cancer Colorectal cancer Social History Smoking Status: Former smoker Tobacco Type: Cigarettes Age Started Using Tobacco: 22; Age Quit Using Tobacco: 48; packs per day: 1; Smoking End Date: 40 years ago; Second Hand Exposure: No; Do You Dip or Chew Tobacco: No; Tobacco Cessation Education Requested by Patient: No Hx Alcohol Use: Yes (none for last 6-8 weeks) Alcohol type: wine Alcohol Intake Frequency: 4 or More x per/Week Hx Substance Use: No Preferred Language: [place]ese Communication Ability: Effective Visual Impairment: Partially Limited Hearing Ability: Normal Home Visits Nurse Required: No Beliefs That Will Affect Care: None marital status: Current Living Situation: Spouse current occupational status: retired How many Children do You have: 3 Other Information That Helps Us Care for You: No Feels Safe at Home: Yes Safety Concerns: Feels Safe At This Time Childhood Exposure to Second-Hand Smoke: Yes caffeine: Yes Dental Care, Regularly: Yes Physical Activity Frequency: Daily Seatbelt Use: always Sunscreen Use: Yes Assistive Devices: None Review of Systems All systems reviewed & are unremarkable except as noted in HPI & below. Physical Exam On physical exam of the left shoulder, she has decreased range of motion about 100 degrees of forward elevation and 80 degrees of abduction 20 degrees of external rotation. She has profound weakness throughout.. Constitutional WD/WN, vitals as above Eyes PERRL, conjunctivae normal, anicteric sclerae ENMT external ear and nose normal, oropharynx normal Neck trachea midline, no thyromegaly Respiratory normal respiratory effort Cardiovascular RRR, no murmur, no edema Gastrointestinal (Abdomen) normal bowel sounds, soft, nontender, no hepatosplenomegaly Psychiatric A+Ox3, euthymic affect Results & Data Results & Data Laboratory Results . Diagnostic Findings . PG Care Time/CCT Total # of Minutes Spent Total Time Spent with Patient: Total time spent is greater than 50% in coordination of care (as documented) at patient's floor/unit and/or counseling patient: Coding Level of Care Code None Diagnoses Rotator cuff arthropathy of left shoulder M12.812
[~2025-05-12 11:04] MED LIST changes: -ACETAMINOPHEN 500 MG TAB PO SCH; -BUPIVACAINE LIPOSOME/PF 266 MG, BUPIVACAINE/EPINEPHRINE 50 ML, SODIUM CHLORIDE 0.9% 30 ... INFIL SCH; -CEFAZOLIN 2000MG 2,000 MG/15 ML SYR IV SCH; +DEXAMETHASONE SOD INJ 4 MG/ML VIAL ONE; -FAMOTIDINE 20 MG TAB PO SCH; -GABAPENTIN 300 MG CAP PO SCH; +LIDOCAINE 2% 2 ML VIAL/AMP(20MG/ML) INFIL ONE; -LR 500ML BOLUS IV SCH; -LR 60ML/HR IV SCH; -METOCLOPRAMIDE HCL 10 MG TABLET PO SCH; +MIDAZOLAM HCL 1 MG/ML 2ML VIAL ONE; +ONDANSETRON INJ 2 MG/ML 2 ML VIAL ONE; +PROPOFOL IV EMULSION 10 MG/ML 20 ML VIAL IV ONE; +ROCURONIUM BROMIDE 10 MG/ML 5 ML VIAL IV ONE; -ROPIVACAINE 0.5% 5 MG/ML 30 ML VIAL ONE; +SUGAMMADEX SODIUM 200 MG/2 ML VIAL IV ONE
--- NOTE | 2025-05-12 11:41 | History & Physical Bridge Note ---
Date of Service May 12, 2025 History & Physical Bridge Note I have examined the patient, reviewed the History & Physical and in the interval since the performance of the History & Physical I have noted the following changes of clinical significance: no changes noted
[2025-05-12] MEDS: GABAPENTIN 300 MG CAP PO SCH (11:45)
[2025-05-12] MEDS: LR 15ML/HR IV SCH (11:46)
[2025-05-12] MEDS: dexAMETHasone**PF** 10 MG/ML VIAL IV SCH (11:56)
[2025-05-12] MEDS: LR 60ML/HR IV SCH (11:57)
[2025-05-12] MEDS: FAMOTIDINE 20 MG TAB PO SCH (11:57)
[2025-05-12] MEDS: ACETAMINOPHEN 500 MG TAB PO SCH ×2 (11:57→21:34)
[2025-05-12] MEDS ORDERED: ATROPINE SULFATE 0.1 MG/ML 10ML SYR IV PRN (12:11)
[2025-05-12] MEDS ORDERED: KETOROLAC 30 MG/ML VIAL IV PRN (12:11)
[2025-05-12] MEDS ORDERED: ONDANSETRON INJ 2 MG/ML 2 ML VIAL IV PRN ×2 (12:11→16:16)
[2025-05-12] MEDS: TRANEXAMIC ACID 1,000 MG **IV Pre-op IV SCH (12:36)
[2025-05-12] MEDS: ORTHO JOINT ANESTHETIC ONE (13:44)
[2025-05-12] MEDS: ROPIV 0.5% 246mg, Ketorolac 30mg, EPINEPHrine 0.5mg in NSS INFIL SCH (13:44)
[2025-05-12] MEDS ORDERED: GLYCOPYRROLATE 0.2 MG/ML VIAL ONE (13:51)
--- NOTE | 2025-05-12 14:04 | Operative Report ---
PG Post Operative Report Pre & Post Diagnosis Operation Date: 05/12/25 13:00 Pre-Op Diagnosis: Cuff tear arthropathy left shoulder Post-Op Diagnosis: Cuff tear arthropathy left shoulder I identified the patient and participated in the time-out.: Yes Procedure Operation Date: 05/12/25 13:00 Actual Procedures p Left Reverse Total Shoulder Arthroplasty(Left) - Darryl Kennedy DO Surgeon Darryl Kennedy DO Electrocardiographic Technician Robert Jara PA-C Estimated Blood Loss 200 Findings Consistent with Post-Op Diagnosis Specimens Left humeral head Description of Procedure Implants used: I used a Biomet Comprehensive reverse total shoulder arthroplasty system with a size 8 press fit micro humeral stem, a +6 offset humeral tray and a standard humeral bearing, a 25 mm small augment baseplate with a 6.5 mm central screw and superior and inferior locking screws, and a size 36 mm eccentric glenosphere. Ev arrived at [facility] for the above procedure. He was seen in the preoperative holding area and the operative extremity was identified and signed. He was given a preoperative antibiotic, TXA, and an interscalene nerve block. He was taken back to the operating room, laid on table in supine position, and put under general anesthesia. He was then put into the beachchair position. The shoulder was then prepped and draped in sterile fashion. A timeout was done and the patient and the operative extremity was properly identified. A deltopectoral approach was used. Dissection was taken down through the fascia and the deltoid was retracted laterally and the conjoined tendon was retracted medially. The anterior shoulder was exposed. The biceps tendon was chronically torn. The subscapularis was then directly released off the lesser tuberosity with a peel technique. The inferior capsule was released and the humeral head was dislocated. A canal finding reamer was sent down the center of the humeral canal. Sequential reaming up to a size 8 reamer was done. Off that reamer, a proximal humeral resection guide was placed. The proximal humerus was resected at 135 of inclination and 25 of retroversion. Osteophytes were then removed and the glenoid was exposed. Time was spent doing a complete capsular and labral release. The glenoid guide was then placed in the inferior aspect of the glenoid. A 3.2 mm Steinmann pin was then placed into the glenoid vault at 10 of inclination. The glenoid baseplate was then reamed. The final size 25 mm small augment baseplate was then impacted in the place. A 6.5 mm central screw was then placed followed by superior and inferior locking screws. A 36 mm eccentric glenosphere was then impacted into place. Surrounding soft tissues were then injected with 100 cc an orthopedic pain control cocktail. The proximal humerus was then exposed. Sequential broaching of the humerus up to a size 8 broach was done. Off that broach a +6 offset humeral tray was trialed. The shoulder was then reduced, brought through a full range of motion, and felt to be stable. The shoulder was then dislocated and the broach was removed. The final size 8 micro press-fit humeral stem was then impacted into place. A standard humeral bearing was then snapped onto a +6 offset humeral tray. The humeral tray was then impacted onto the humeral stem. The shoulder was once again reduced, brought through a full range of motion, and felt to be stable. The subscapularis was poor quality and unable to be repaired.. A dilute betadyne lavage was then done for 3 minutes. The joint was then irrigated with normal saline solution. Hemostasis was obtained. The interval was closed with 2-0 Vicryl suture. The skin was then closed with 2-0 Vicryl and Elza Zipline. A Silverlon dressing was placed and the arm was rested in a regular arm sling. He was then extubated and transferred to a hospital bed. He taken to the postanesthesia care unit in stable condition. He tolerated the procedure well. Robert Jaar PA-C, was present for the entire procedure. He was critical for patient positioning, prepping, draping, retraction exposure, wound closure and application of sterile dressing. I attest to the content of the Intraoperative Record and any orders documented therein. Any exceptions are noted below.
--- NOTE | 2025-05-12 14:49 | Anesthesiology Progress Note ---
Date of Service May 12, 2025 Anesthesia Post Procedure Vital Signs Vital Signs: Temp Pulse Resp BP Pulse Ox O2 Del Method O2 Flow Rate 05/12/25 14:34 36.0 C L 62 14 151/74 H 97 Nasal Cannula 3 05/12/25 11:29 36.5 C 60 18 151/82 H 94 Room Air Pain Intensity Left Shoulder: Pain Intensity: 5 Transfer of Care Handoff Completed per policy Notes Mental Status: alert / awake / arousable and participated in evaluation Patient Amnestic to Procedure: Yes Nausea / Vomiting: adequately controlled Pain: adequately controlled Airway Patency, RR, SpO2: stable & adequate BP & HR: stable & adequate Hydration State: stable & adequate Anesthetic Complications: no major complications apparent and Pt Satisfied with anesthetic care
--- NOTE | 2025-05-12 14:59 | XRay Report ---
XR shoulder LT min 2V routine CLINICAL HISTORY: Post shoulder surgery COMPARISON: 02/19/2023 FINDINGS: Left shoulder prosthesis shows no hardware complication. There is expected soft tissue gas . There is mild atelectasis left lung base. IMPRESSION: Unremarkable postoperative exam. ACT 112: Negative or not required by law. Electronically signed by: Sd Cortés M.D. 05/12/2025 2:58 PM
[2025-05-12] MEDS ORDERED: HYDROmorphone INJ 0.5 MG/0.5 ML SYR IV PRN (16:16)
[2025-05-12] MEDS ORDERED: METOCLOPRAMIDE HCL INJ 5 MG/ML 2 ML VIAL IV PRN (16:16)
[2025-05-12] MEDS ORDERED: MAGNESIUM HYDROXIDE SUSP 30 ML UDC PO PRN (16:16)
[2025-05-12] MEDS ORDERED: NALOXONE HCL 0.4 MG/1 ML VIAL/CARP IV PRN (16:16)
[2025-05-12] MEDS: BUPIVACAINE LIPOSOME 1.3% 133 MG/10 ML VIAL ONE (16:18)
[2025-05-12] MEDS: SODIUM CHLORIDE 0.9% 1,000 ML IV SCH (16:49)
[2025-05-12] MEDS: KETOROLAC TROMETHAMINE 15 MG/ML VIAL IV SCH (16:49)
[2025-05-12] MEDS: SENNA 8.6 MG TAB PO SCH (21:34)
[2025-05-12] MEDS: DOCUSATE SODIUM 100 MG CAP PO SCH (21:34)
[2025-05-12] MEDS: LABETALOL HCL 200 MG TAB PO SCH (21:35)
[2025-05-12] MEDS: SIMVASTATIN 40 MG TAB PO SCH (21:36)
--- NOTE | 2025-05-13 07:28 | Orthopedic Progress Note ---
Date of Service May 13, 2025 Assessment & Plan (1) Status post reverse arthroplasty of left shoulder: Overall she is doing very well. She is not having much pain in the left shoulder. She will be seen by physical therapy today for ambulation and range of motion exercises. She can be discharged to home later today. She will follow-up with orthopedics in 2 weeks. Cici Carreno was seen and examined at bedside this morning. Overall she is doing fa irly well. She is not having much pain in the left shoulder. She was able to get some sleep last night. She has no complaints.. Review of Systems All systems reviewed & are unremarkable except as noted in HPI & below. Physical Exam On physical exam of the left shoulder, the dressing is clean and dry. The nerve block is still in effect. She is wearing her sling as instructed.. Results & Data Results & Data Laboratory Results . Diagnostic Findings Postoperative x-rays of the left shoulder show the prosthesis to be in anatomic alignment without any evidence of fracture, dislocation, or loosening.. PG Care Time/CCT Total # of Minutes Spent Total Time Spent with Patient: Total time spent is greater than 50% in coordination of care (as documented) at patient's floor/unit and/or counseling patient: Coding Level of Care Code 62594 Post Operative Follow-Up Diagnoses Status post reverse arthroplasty of left shoulder Z96.612
[2025-05-13 08:24] VITALS: BP 127/86; RESP 16; TEMP 98.1; O2SAT 95
[2025-05-13] MEDS: LABETALOL HCL 200 MG TAB PO SCH (08:24)
[2025-05-13] MEDS: ANASTROZOLE 1 MG TAB PO SCH (08:24)
[2025-05-13] MEDS: LEVOTHYROXINE SODIUM 25 MCG TABLET PO SCH (08:24)
[2025-05-13] MEDS: MULTIVITAMIN TAB PO SCH (08:25)
[2025-05-13] MEDS: VENLAFAXINE HCL XR 75 MG CAPXR PO SCH (08:25)
[2025-05-13 10:52] VITALS: PULSE 57
== END 2025-05-13 12:32 | disposition home or self-care (01) ==
LOC: 3E 11:04 → ASU 11:04